=== PATIENT | male | born 1945 | race Caucasian/White ===

== ENCOUNTER → 2024-02-26 09:49 | Outpatient (CLI) | payer MEDICARE, SELFPAY ==
--- NOTE | ~2024-02-26 | XR_ITS ---
Left foot Technique: AP, oblique, and lateral views were obtained. Clinical History: Plantar fascial fibromatosis, pain Findings: No acute fracture or dislocation is seen. Osseous alignment is anatomic. Joint spaces are p reserved without erosive or degenerative change. Small plantar calcaneal spur present. Soft tissues a re unremarkable. Impression: Small plantar calcaneal spur, otherwise unremarkable exam. Reviewed, dictated and finalized at location . Impression: Small plantar calcaneal spur, otherwise unremarkable exam.
== END ==
PROVIDERS: PCP Family Medicine; Visit Provider Family Medicine
DX: M77.32 Calcaneal spur, left foot (principal); M72.2 Plantar fascial fibromatosis
CPT/HCPCS: 73630